=== PATIENT | male | born 1965 | race Caucasian/White ===

== ENCOUNTER 2021-01-19 03:39 | Emergency (ER) | payer MEDICAID ==
[~2021-01-19] VITALS: Ht 162.6 cm; Wt 75.0 kg
[2021-01-19] MEDS ORDERED: ACETAMINOPHEN 500 MG TABLET PO ONE (04:00)
[2021-01-19] MEDS ORDERED: IBUPROFEN 600 MG TABLET PO ONE (04:00)
[2021-01-19] MEDS ORDERED: LIDOCAINE 5% TRANSDERMAL PATCH TD ONE (04:00)
[2021-01-19 04:10] VITALS: BP 148/96
== END 2021-01-19 04:50 | disposition home or self-care (01) ==
LOC: EMS 03:46
DX: G57.02 Lesion of sciatic nerve, left lower limb (principal); I10 Essential (primary) hypertension
CPT/HCPCS: 99284; Z7502; Z7610